=== PATIENT | male | born 1985 | race Caucasian/White ===

== ENCOUNTER 2025-01-25 17:06 | Emergency (ER) | payer OTHER, SELFPAY ==
[2025-01-25 17:06] VITALS: BMI 24.0
[2025-01-25 17:23] VITALS: BP 138/92; PULSE 93; RESP 18; TEMP 37.2; O2SAT 97
--- NOTE | 2025-01-25 17:44 | PD.EDRME ---
Rapid Medical Screening Exam RME Arrival date/time: 01/25/25 17:06 39-year-old male currently in the [facility] for alcohol [facility] presents requesting prescription for Ativan as he reports he is going through withdrawals last reported at 1 AM Chief Complaint: Alcohol Vital signs: Vital Signs Temperature 98.9 F 01/25/25 17:23 Pulse Rate 93 01/25/25 17:23 Respiratory Rate 18 01/25/25 17:23 Blood Pressure 138/92 H 01/25/25 17:23 Pulse Oximetry (%) 97 01/25/25 17:23 Oxygen Delivery Method Room Air 01/25/25 17:23
[2025-01-25] MEDS: LORazepam 0.5 MG TABLET 1 MG PO (17:51)
[2025-01-25 18:11] LABS: Basophils # (Auto) 0.1 Thou/mm3 (0.0-0.2); Basophils % (Auto) 1 % (0-2.5); Eosinophils % (Auto) 1 % (0-10); Hematocrit 43.3 % (41.0-53.0); Hemoglobin 15.1 g/dL (13.5-16.0); Immature Granulocytes % (Auto) 0 % (0-0); Immature Granulocytes Auto 0.02 Thou/mm3 (0.00-0.00); Lymphocytes # (Auto) 1.9 Thou/mm3 (1.0-4.8); Lymphocytes % (Auto) 30 % (10-50); Mean Corpuscular HGB Conc 34.9 g/dl (31.0-37.0); Mean Corpuscular Hemoglobin 29.4 pg (25.0-35.0); Mean Corpuscular Volume 84 fL (80-100); Monocytes # (Auto) 0.5 Thou/mm3 (0.0-0.8); Monocytes % (Auto) 7 % (0-12); Neutrophils # (Auto) 3.8 Thou/mm3 (1.8-7.7); Neutrophils % (Auto) 61 % (37-80); Nucleated Red Blood Cell % 0 /100 WBC (0); Platelet Count 220 Thou/mm3 (140-440); Red Blood Count 5.14 Miln/mm3 (4.50-5.90); White Blood Count 6.2 Thou/mm3 (3.8-10.6)
[2025-01-25 18:31] LABS: Prothrombin Time 11.1 Seconds (9.0-12.2)
[2025-01-25 18:35] LABS: Amphetamine/Methamp Scrn,U Negative (Negative); Barbiturate Screen,Urine Negative (Negative); Benzodiazepines Screen,Urine Negative (Negative); Benzoylecgonine Screen, Ur Negative (Negative); Fentanyl Screen,Urine Negative (Negative); Opiate Screen,Urine Negative (Negative); THC Screen,Urine Positive (Negative)
[2025-01-25 18:41] LABS: Alanine Aminotransferase 42 U/L (10-49); Albumin, Serum 4.6 gm/dL (3.5-5.0); Albumin/Globulin Ratio 1.6 (1.2-2.2); Alcohol, Blood Medical < 3.0 mg/dL (0-10.0); Alkaline Phosphatase 93 U/L (46-116); Anion Gap 7 (7-16); Aspartate Amino Transferase 31 U/L (0-34); BUN/Creatinine Ratio 14 Ratio (12-20); Bilirubin,Total 0.8 mg/dL (0.3-1.2); Blood Urea Nitrogen 14 mg/dL (9-23); Calcium 9.8 mg/dL (8.3-10.6); Calcium (Corrected) 9.8 mg/dL (8.5-10.1); Carbon Dioxide 29.7 mMol/L (20.0-31.0); Chloride 101 mMol/L (98-107); Estimated Creatinine Clearance 82.2 mL/min (>60); Globulin 2.8 gm/dL (2.3-3.5); Glucose 87 mg/dL (74-106); Magnesium 1.8 mg/dL (1.6-2.6); Osmolality,Calculated 275 (275-295); Potassium 3.6 mMol/L (3.4-5.1); Sodium 138 mMol/L (136-145); Total Protein 7.4 gm/dL (5.7-8.2); eGFR > 60 See Note
--- NOTE | 2025-01-25 18:56 | PD.EDALCOH ---
ED Alcohol RME/HPI General Chief Complaint: Alcohol Stated Complaint: ALCOHOL WITHDRAWAL SINCE THIS AM Time Seen by Provider: 01/25/25 18:22 Arrival date/time: 01/25/25 17:06 RME / HPI RME / HPI narrative: 01/25/25 17:06 39-year-old male currently in the [facility] program for alcohol rehabilitation presents requesting prescription for Ativan as he reports he is going through withdrawals last reported at 1 AM This section includes all my notes and documentations, including HPI, PE, and ED course. Gelacio Hall MD HPI: 39-year-old male here requesting help for possible alcohol withdrawal. Has been drinking heavily every single day for least a few months. The last drink was earlier this morning, about 12 hours ago. No shaking. No seizures. No nausea or vomiting. No abdominal pain. No other complaints. ROS: All negative except as documented in HPI. Physical Exam: General: Alert and oriented. No acute distress. Eyes: Conjunctivae and lids clear. EOMI. PERRL. ENT: No nasal congestion. Pharynx normal. Tympanic membrane normal bilaterally. Neck: Supple. No lymphadenopathy. No JVD. Heart: RRR. Lungs: No respiratory distress. Good air movement. No rhonchi, wheezing, rales. Chest: No tenderness. Abdomen: Soft and nontender. Normal bowel sounds. No distension. No rebound or guarding. Back: No CVA tenderness. Legs: No clubbing, cyanosis, edema. Skin: Warm and dry. Neuro: Alert and oriented X 3. Cranial Nerves II-XII grossly intact. No peripheral motor deficits. I reviewed all diagnostic test results. Blood tests and urine tests At this point, diagnoses include alcohol abuse, no signs of immediate alcohol withdrawal. Prescribed Ativan to prevent alcohol withdrawal and recommended more outpatient care. Based on my best medical judgment, made decision no further evaluation or treatment indicated at this time. Patient understands and agrees to the discharge instructions customized and printed, see below. Discharge Instructions from Dr. Hall printed for you: 1. After evaluation, you are not in immediate danger of severe alcohol withdrawal. 2. But please abstain from alcohol. 3. To prevent alcohol withdrawal, take Ativan 1 mg pills as instructed. Take 1 pill every 8 hours for 3 doses. Then 1 pill every 12 hours for 2 doses. Then 1 pill every 24 hours for 2 doses. 4. Take multivitamin and folic acid 1 mg and thiamine 50 mg every single day. 5. For good hydration, increase oral fluid and maintain clear urine. If dark or yellow, increase oral fluid. 6. See a private doctor on 01/26/25 for recheck and further care. Ask for help until you are completely better. 7. Seek immediate medical care with any concerns. Gelacio Hall MD Related Data Previous Rx's ?Medication ?Instructions ?Recorded lorazepam 1 mg tablet (Ativan) 1 mg PO BID #7 tabs 01/25/25 Allergies Allergy/AdvReac Type Severity Reaction Status Date / Time ibuprofen Allergy Severe Hives Verified 01/25/25 17:11 Course Quality Measures none Orders Category Date Time Status Alcohol, Blood Medical Stat Lab 01/25/25 18:05 Completed CBC Stat Lab 01/25/25 18:05 Completed Comprehensive Metabolic Panel Stat Lab 01/25/25 18:05 Completed Drug Screen,Urine Stat Lab 01/25/25 18:15 Completed Mag [Magnesium] Stat Lab 01/25/25 18:05 Completed Partial Thromboplastin Time Stat Lab 01/25/25 18:05 Completed Prothrombin Time with INR Stat Lab 01/25/25 18:05 Completed LORazepam [Ativan] Med 01/25/25 17:43 Discontinued 1 mg PO X1 ONE Vital Signs Vital signs: Vital Signs Temperature 98.9 F 01/25/25 17:23 Pulse Rate 93 01/25/25 17:23 Respiratory Rate 18 01/25/25 17:23 Blood Pressure 138/92 H 01/25/25 17:23 Pulse Oximetry (%) 97 01/25/25 17:23 Oxygen Delivery Method Room Air 01/25/25 17:23 Discharge Plan Plan Patient Disposition: HOME (Self Care) Prescriptions/Referrals Prescriptions/Med Rec: New lorazepam [Ativan] 1 mg tablet 1 mg PO BID Qty: 7 0RF Rx Instructions: Take 1 pill every 8 hours X 3 doses then 1 pill every 12 hours X 2 doses then 1 pill every 24 hours X 2 doses. Referrals: No Primary/Family,Physician [Primary Care Provider] - In 1 week Problem List Clinical Impression: Alcohol abuse Patient/Caregiver Discharge Instructions Discharge Activity: activity as tolerated Education Materials: ED Alcohol Abuse Additional Instructions: Discharge Instructions from Dr. Hall printed for you: 1. After evaluation, you are not in immediate danger of severe alcohol withdrawal. 2. But please abstain from alcohol. 3. To prevent alcohol withdrawal, take Ativan 1 mg pills as instructed. Take 1 pill every 8 hours for 3 doses. Then 1 pill every 12 hours for 2 doses. Then 1 pill every 24 hours for 2 doses. 4. Take multivitamin and folic acid 1 mg and thiamine 50 mg every single day. 5. For good hydration, increase oral fluid and maintain clear urine. If dark or yellow, increase oral fluid. 6. See a private doctor on 01/26/25 for recheck and further care. Ask for help until you are completely better. 7. Seek immediate medical care with any concerns. Print Language: [place] Stand Alone Forms: [employer] Award Info., Patient Portal Info Letter Alcohol Patient data External records reviewed:: [facility] previous records Clinical information provided by:: patient Social determinants that could affect healthcare access:: alcohol use Patient has the following chronic illnesses:: Alcohol abuse How is presenting disease/condition affected by chronic disease/condition?: exacerbated by Evaluation data The following diagnostics were reviewed and interpreted by me:: lab results Lab and/or radiology exams considered but not ordered:: None Interpretation Summary: Normal diagnostics Medications / Prescriptions Medications or Prescriptions considered but not ordered:: None Medication administrations:: Medication Administration History Discontinued Medications Lorazepam (Lorazepam 0.5 Mg Tablet) 1 mg PO X1 ONE Stop: 01/25/25 17:44 Last Admin: 01/25/25 17:51 Dose: 1 mg Documented By: OA Ativan 1 mg orally Consultations Consultation(s) initiated? (list below): No Diagnosis Differential diagnosis alcohol: alcohol withdrawal delirium, hypomagnesemia, alcohol intoxication, alcohol ketoacidosis, alcohol withdrawal syndrome and alcohol withdrawal seizure Most likely diagnosis given after review of the tests above:: Alcohol abuse Admission Indicated Admission indicated?: not indicated Explain why admission is indicated or not indicated:: There was no indication for admission. Admission Request Was there a request for admission?: No Disposition Plan Disposition Plan: Discharge Discharge Attestation Discharge Attestation: The patient and all family members were given an opportunity to ask questions and understood the discharge instructions. Discharge instructions specifically effects, indications for sooner follow up or return to the emergency department, and the expected course of current diagnosis. Patient condition: Stable
[2025-01-25 19:18] VITALS: BP 126/86; PULSE 76; RESP 16; TEMP 36.8; O2SAT 98
== END 2025-01-25 19:21 | disposition home or self-care (01) ==
PROVIDERS: Nurse Practitioner Primary Care; Emergency Provider Emergency Medicine
DX: F10.10 Alcohol abuse, uncomplicated (principal); Y90.0 Blood alcohol level of less than 20 mg/100 ml
CPT/HCPCS: 36415; 80053; 80307; 80320; 83735; 85025; 85610; 85730; 99283; A9270; G0480